=== PATIENT | male | born 2000 | race African-American/Black ===

== ENCOUNTER 2024-01-23 20:12 | Emergency (ER) | payer SELFPAY ==
[~2024-01-23] VITALS: Ht 182.9 cm; Wt 68.0 kg
[2024-01-23 20:18] VITALS: BP 125/72; PULSE 102; RESP 16; TEMP 97.9; O2SAT 95
[2024-01-23] MEDS ORDERED: TRIPLE ANTIBIOTIC OINTMENT PKT TP ONE (21:10)
[2024-01-23 21:19] VITALS: BP 129/70; PULSE 83; RESP 16; TEMP 97.9; O2SAT 98
== END 2024-01-23 21:28 ==
LOC: ER 20:12
DX: T75.4XXA Electrocution, initial encounter (principal); S60.512A Abrasion of left hand, initial encounter; S60.511A Abrasion of right hand, initial encounter; F12.90 Cannabis use, unspecified, uncomplicated; W86.8XXA Exposure to other electric current, initial encounter; Y93.89 Activity, other specified; Y92.89 Other specified places as the place of occurrence of the external cause; Y99.8 Other external cause status
CPT/HCPCS: 93005; 99283